=== PATIENT | female | born 1985 | race Caucasian/White ===

== ENCOUNTER 2022-02-07 08:28 | Emergency (ER) | payer MEDICAID ==
[~2022-02-07] VITALS: Ht 147.3 cm; Wt 94.0 kg
[2022-02-07 08:33] VITALS: BP 188/111
[2022-02-07] MEDS ORDERED: ACETAMINOPHEN 325MG TABLET PO ONE (09:15)
[2022-02-07 09:41] LABS: CHLORIDE 107 mEq/L (98-107)
[2022-02-07 09:51] LABS: B-HCG QUANTITATIVE < 1 mIU/mL (<3)
[2022-02-07 10:39] LABS: BASOPHILS % 0.6 % (0.0-2.0); EOSINOPHILS % 2.2 % (0.0-5.0); HEMATOCRIT. 34.5 % (36.0-48.0); HEMOGLOBIN. 10.7 g/dL (12.0-16.0); LYMPHOCYTES % 29.1 % (20.0-50.0); MEAN CORPUSCULAR HEMOGLOBIN 19.8 pg (28.0-32.0); MEAN CORPUSCULAR VOLUME 63.7 fL (81.0-99.0); MEAN PLATELET VOLUME 8.8 fl (7.4-10.4); MONOCYTES % 5.1 % (2.0-8.0); PLATELET 226 x1000/uL (130-400); RED BLOOD CELL COUNT 5.42 mill/uL (4.2-5.4); RED CELL DISTRIBUTION WIDTH 21.3 % (11.6-14.6)
[2022-02-07 11:11] LABS: PLATELET ESTIMATE NORMAL
== END 2022-02-07 11:58 | disposition home or self-care (01) ==
LOC: ER 08:28
DX: N92.0 Excessive and frequent menstruation with regular cycle (principal); R53.1 Weakness; I10 Essential (primary) hypertension; G40.909 Epilepsy, unspecified, not intractable, without status epilepticus
CPT/HCPCS: 36415; 76830; 76856; 80053; 81025; 84702; 85025; 86850; 86900; 93005; 99285

== ENCOUNTER 2023-11-06 17:33 | Emergency (ER) | payer MEDICAID ==
[~2023-11-06] VITALS: Ht 149.9 cm; Wt 87.0 kg
[2023-11-06 17:42] VITALS: O2SAT 100
[2023-11-06] MEDS: IBUPROFEN 600MG TABLET PO ONE (20:14)
[2023-11-06 21:09] VITALS: BP 158/90; PULSE 74; RESP 20; TEMP 98.3
== END 2023-11-06 21:28 | disposition home or self-care (01) ==
LOC: ER 17:33
DX: M79.644 Pain in right finger(s) (principal); I10 Essential (primary) hypertension; Z86.59 Personal history of other mental and behavioral disorders; Z98.890 Other specified postprocedural states
CPT/HCPCS: 29130; 73130; 99283